=== PATIENT | female | born 1950 | race Caucasian/White ===

== ENCOUNTER 2016-07-06 08:15 | Day surgery (SDC) | payer MEDICARE, BC ==
[2016-07-06 10:52] VITALS: TEMP 97.4
[2016-07-06 11:32] VITALS: BP 142/87; PULSE 65; RESP 18; O2SAT 93
== END 2016-07-06 10:40 | disposition home or self-care (01) | DRG 951 ==
LOC: SURG 08:15
PROVIDERS: ATTEND Surgery
DX: Z12.11 Encounter for screening for malignant neoplasm of colon (principal); K57.30 Diverticulosis of large intestine without perforation or abscess without bleeding; R73.01 Impaired fasting glucose
CPT/HCPCS: 82962; J2001; J2704